=== PATIENT | female | born 1995 | race Caucasian/White ===

== ENCOUNTER 2020-08-12 23:05 | Observation (INO) ==
[2020-08-12] MEDS ORDERED: SODIUM CHLORIDE 0.9% 1000ML 1,000 ML IV ONE (23:20)
--- NOTE | 2020-08-12 23:27 | Emergency Department Note ---
Impression & Plan Drug overdose, Alcohol intoxication ED Provider Note Name: MURALI MILLRE Age: 25 Sex: F Arrives Via: Ambulance Informant: Patient, EMS, 302 petition ED Provider: Tom Cr MD Chief Complaint: overdose Impression: Drug Overdose Alcohol Intoxication Medical Decision Makin yr old female with history bipolar arrives after being witnessed taking entire bottle of Abilify. Patient intoxicated, admits she took the meds, is unable to say how many, and states that she was not trying to kill herself. 302 paperwork reports this was done in attempt to kill self. EKG, labs, vitals OK. Reviewed with Poison Control who advised medical observation for monitoring given delays absorption abilify. Patient stable and looks well. Agreeable to hospitalization for monitoring. Hospitalist in to evaluate further. Prior Medical Record and Triage/Nursing Notes reviewed by Me Additional history obtained from chart & EMS & 302 Differentials:Overdose, toxicologic, infection, hypoglycemia, electrolyte abnormalities, cardiac sources, intracerebral event, neurologic, trauma, as well as other pathologies. Vital Signs: reviewed and remarkable for no significant abnormalities Interventions: Saline lock, nss bolus Labs:Reviewed and remarkable for +etoh EKG:Per My Interpretation: Indication overdose: Sinus Seymour 56 bpm, qtc 387, qrs 90. No Ectopy. No Ischemia. No previous for comparison Cardiac/Tele Monitoring: Cardiac Monitoring: An Order was placed for continuous cardiac monitoring. The monitor shows a rate of 60 with a normal sinus rhythm. Consults:Poison control - medical observation required Dr Sourav Villaseñor Hospitalist Plan: Disposition:Hospitalization. Condition: Good History of Present Illness:25 yr old female arrives for evaluation following an overdose. Patient took an unknown amount of Abilify this evening. She admits she swallowed entire bottle but unclear how much was in the bottle. She had stopped using it for the last few months. She has a history of bipolar and is currently on no medications for this. She denies previous suicidal/homicidal ideation. Patient admits she is intoxicated after drinking "warm piss" all night. She is not sure why she took all the pills but she admits she was upset with her roommate. Her roommate reportedly called 911. She states she was not trying to harm herself. States feeling well with no medical complaints recently. No drug use. No recent trauma/injuries. ROS: See above HPI for pertinent positives & negatives. A total of 10 systems reviewed and were otherwise negative. Past Medical History:Migraines Past Surgical History:None Family History:State healthy Social History:Works at [employer], No drugs/tobacco, occasional etoh Home Medications:None Allergies:Sumatriptan Vitals:Blood Pressure: 99/56, Pulse 78, RR 18, T 36.7C, O2 96% on RA Physical Exam: GENERAL: Patient is intoxicated appearing and in mild distress. Crying and sad. EYES: No scleral icterus, unremarkable pupils. ENT: Mucous membranes moist, no nasal congestion. NECK: No masses appreciated, nomeningismus, trachea is midline. RESPIRATORY: No dyspnea. Clear to auscultation and equal bilaterally. No wheeze, no rhonchi. CARDIOVASCULAR: Regular rate and rhythm.No murmurs, rubs, gallops appreciated. GASTROINTESTINAL: Abdomen soft, non-tender, no peritonitis.Bowel sounds positive.No masses appreciated. BACK: No midline tenderness, no CVA tenderness EXTREMITIES: Normal motion all extremities, no cyanosis, no edema. NEUROLOGIC: Slurred intoxicated speech, no acute motor or sensory deficits, no focal weakness, cranial nerves grossly intact. SKIN: No rash, no jaundice, no diaphoresis. 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 Beliefs That Will Affect Care: None Current Living Situation: Alone Other Information That Helps Us Care for You: No Feels Safe at Home: Yes Safety Concerns: Feels Safe At This Time Assistive Devices: None Allergies Allergies Allergy/AdvReac Type Severity Reaction Status Date / Time Sulfa (Sulfonamide Allergy Intermediate Hives Verified 08/12/20 23:44 Antibiotics) sumatriptan Allergy Intermediate Hives Verified 08/12/20 23:44 Home Meds Home Medications Medication Instructions Recorded Confirmed albuterol sulfate 2 puff INHALATION Q4 PRN 08/12/20 08/12/20 fluticasone propionate 2 spray INTRANASAL DAILY PRN 08/12/20 08/12/20 Results & Data (ED) Vital Signs Vital Signs - 24 hr 08/12/20 23:12 08/12/20 23:14 08/12/20 23:15 Temperature 36.7 C Temperature Source Oral Pulse Rate 85 78 Pulse Rate from SpO2 Sensor 84 85 Respiratory Rate 18 Respiratory Effort / Characteristics Non-Labored Spontaneous Respiratory Depth Normal Blood Pressure 99/56 L 99/56 L Blood Pressure Mean 70 70 Pulse Oximetry 97 96 96 Oxygen Delivery Method Room Air Sepsis Recent Fever Within 48 Hours No Sepsis New/Unexplained Change in Mental Status No Sepsis Action Taken by Nursing No Action Required 08/12/20 23:30 08/12/20 23:31 08/13/20 00:00 Temperature Temperature Source Pulse Rate 60 62 56 L Pulse Rate from SpO2 Sensor 58 L 60 58 L Respiratory Rate 19 17 16 Respiratory Effort / Characteristics Respiratory Depth Blood Pressure 86/44 L 87/48 L Blood Pressure Mean 58 61 Pulse Oximetry 96 96 98 Oxygen Delivery Method Sepsis Recent Fever Within 48 Hours Sepsis New/Unexplained Change in Mental Status Sepsis Action Taken by Nursing 08/13/20 00:01 08/13/20 00:30 08/13/20 00:31 Temperature Temperature Source Pulse Rate 58 L Pulse Rate from SpO2 Sensor 57 L 72 66 Respiratory Rate 15 Respiratory Effort / Characteristics Respiratory Depth Blood Pressure 91/42 L Blood Pressure Mean 58 Pulse Oximetry 97 96 97 Oxygen Delivery Method Sepsis Recent Fever Within 48 Hours Sepsis New/Unexplained Change in Mental Status Sepsis Action Taken by Nursing Laboratory Data Result diagrams: 08/12/20 23:31 08/12/20 23:31 Lab Results 08/12/20 08/12/20 08/12/20 Range/Units 23:31 23:31 23:31 WBC 7.98 (4.8-10.8) K/uL RBC 4.41 (4.2-5.4) M/uL Hgb 13.4 (12.0-16.0) g/dL Hct 39.2 (37-47) % MCV 88.9 (80-100) fL MCH 30.4 (25-34) pg MCHC 34.2 (32-36) g/dL RDW Std Deviation 43.4 (36.4-46.3) fL RDW Coeff of David 13.1 (11.5-14.5) % Plt Count 298 (130-400) K/uL MPV 9.2 (7.4-10.4) fL Immature Gran % (Auto) 0.3 % Neut % (Auto) 76.5 % Lymph % (Auto) 18.2 % Martin % (Auto) 2.8 % Eos % (Auto) 1.9 % Baso % (Auto) 0.3 % Neut # (Auto) 6.12 (1.4-6.5) K/uL Lymph # (Auto) 1.45 (1.2-3.4) K/uL Martin # (Auto) 0.22 (0.11-0.59) K/uL Eos # (Auto) 0.15 (0-0.5) K/uL Baso # (Auto) 0.02 (0-0.2) K/uL Immature Gran # (Auto) 0.02 (0.00-0.02) K/uL Sodium 145 (136-145) mmol/L Potassium 3.3 L (3.5-5.1) mmol/L Chloride 114 H (98-107) mmol/L Carbon Dioxide 26 (21-32) mmol/L Anion Gap 5.0 (3-11) BUN 8 (7-18) mg/dl Creatinine 0.49 L (0.6-1.2) mg/dl Est Cr Clr Drug Dosing 139.7 ml/min Est GFR ( Amer) > 150.0 ml/min Est GFR (Non-Af Amer) 136.4 ml/min BUN/Creatinine Ratio 16.8 (10-20) Glucose 87 (70-99) mg/dl Calcium 8.7 (8.5-10.1) mg/dl Total Bilirubin 0.3 (0.2-1) mg/dl AST 11 L (15-37) U/L ALT 16 (12-78) U/L Alkaline Phosphatase 58 (45-117) U/L Total Protein 7.2 (6.4-8.2) gm/dl Albumin 3.4 (3.4-5.0) gm/dl Globulin 3.8 (2.5-4.0) gm/dl Albumin/Globulin Ratio 0.9 (0.9-2) TSH 0.517 (0.300-4.500) uIu/ml HCG, Qual (Negative) Salicylates 2.9 (2.8-20) mg/dl Acetaminophen < 2 L (10-30) ug/ml Ethyl Alcohol mg/dL (0-3) mg/dl COVID-19 Eval Order SARS-CoV-2 (PCR) (Negative) 08/12/20 08/12/20 08/12/20 Range/Units 23:31 23:31 23:40 WBC (4.8-10.8) K/uL RBC (4.2-5.4) M/uL Hgb (12.0-16.0) g/dL Hct (37-47) % MCV (80-100) fL MCH (25-34) pg MCHC (32-36) g/dL RDW Std Deviation (36.4-46.3) fL RDW Coeff of David (11.5-14.5) % Plt Count (130-400) K/uL MPV (7.4-10.4) fL Immature Gran % (Auto) % Neut % (Auto) % Lymph % (Auto) % Martin % (Auto) % Eos % (Auto) % Baso % (Auto) % Neut # (Auto) (1.4-6.5) K/uL Lymph # (Auto) (1.2-3.4) K/uL Martin # (Auto) (0.11-0.59) K/uL Eos # (Auto) (0-0.5) K/uL Baso # (Auto) (0-0.2) K/uL Immature Gran # (Auto) (0.00-0.02) K/uL Sodium (136-145) mmol/L Potassium (3.5-5.1) mmol/L Chloride (98-107) mmol/L Carbon Dioxide (21-32) mmol/L Anion Gap (3-11) BUN (7-18) mg/dl Creatinine (0.6-1.2) mg/dl Est Cr Clr Drug Dosing ml/min Est GFR ( Amer) ml/min Est GFR (Non-Af Amer) ml/min BUN/Creatinine Ratio (10-20) Glucose (70-99) mg/dl Calcium (8.5-10.1) mg/dl Total Bilirubin (0.2-1) mg/dl AST (15-37) U/L ALT (12-78) U/L Alkaline Phosphatase (45-117) U/L Total Protein (6.4-8.2) gm/dl Albumin (3.4-5.0) gm/dl Globulin (2.5-4.0) gm/dl Albumin/Globulin Ratio (0.9-2) TSH (0.300-4.500) uIu/ml HCG, Qual Negative (Negative) Salicylates (2.8-20) mg/dl Acetaminophen (10-30) ug/ml Ethyl Alcohol mg/dL 155.0 H (0-3) mg/dl COVID-19 Eval Order Covid19 at [facility] SARS-CoV-2 (PCR) (Negative) 08/12/20 Range/Units 23:40 WBC (4.8-10.8) K/uL RBC (4.2-5.4) M/uL Hgb (12.0-16.0) g/dL Hct (37-47) % MCV (80-100) fL MCH (25-34) pg MCHC (32-36) g/dL RDW Std Deviation (36.4-46.3) fL RDW Coeff of David (11.5-14.5) % Plt Count (130-400) K/uL MPV (7.4-10.4) fL Immature Gran % (Auto) % Neut % (Auto) % Lymph % (Auto) % Martin % (Auto) % Eos % (Auto) % Baso % (Auto) % Neut # (Auto) (1.4-6.5) K/uL Lymph # (Auto) (1.2-3.4) K/uL Martin # (Auto) (0.11-0.59) K/uL Eos # (Auto) (0-0.5) K/uL Baso # (Auto) (0-0.2) K/uL Immature Gran # (Auto) (0.00-0.02) K/uL Sodium (136-145) mmol/L Potassium (3.5-5.1) mmol/L Chloride (98-107) mmol/L Carbon Dioxide (21-32) mmol/L Anion Gap (3-11) BUN (7-18) mg/dl Creatinine (0.6-1.2) mg/dl Est Cr Clr Drug Dosing ml/min Est GFR ( Amer) ml/min Est GFR (Non-Af Amer) ml/min BUN/Creatinine Ratio (10-20) Glucose (70-99) mg/dl Calcium (8.5-10.1) mg/dl Total Bilirubin (0.2-1) mg/dl AST (15-37) U/L ALT (12-78) U/L Alkaline Phosphatase (45-117) U/L Total Protein (6.4-8.2) gm/dl Albumin (3.4-5.0) gm/dl Globulin (2.5-4.0) gm/dl Albumin/Globulin Ratio (0.9-2) TSH (0.300-4.500) uIu/ml HCG, Qual (Negative) Salicylates (2.8-20) mg/dl Acetaminophen (10-30) ug/ml Ethyl Alcohol mg/dL (0-3) mg/dl COVID-19 Eval Order SARS-CoV-2 (PCR) NEGATIVE (Negative) Administered Medications Sodium Chloride (Nss 1000ml) 1,000 mls @ 125 mls/hr IV .Q8H JOSEPH Stop: 09/12/20 01:47 Last Admin: 08/13/20 05:14 Dose: Not Given Documented by: [id number] Discontinued Medications Sodium Chloride (Nss 1000ml) 1,000 mls @ 999 mls/hr IV .Q1H1M ONE Stop: 08/13/20 00:20 Last Infusion: 08/13/20 01:09 Dose: 0 mls/hr Documented by: [id number] Admin: 08/13/20 00:00 Dose: 999 mls/hr Documented by: [id number] Discharge Plan Visit Data Chief Complaint: Overdose (Accidental) Stated Complaint: overdose ED Provider: Tom Cr Discharge Problem: Drug overdose, Alcohol intoxication Patient Disposition: Admitted As Inpatient Discharge Instructions Interventions: ED Discharge Assessment Last Done: 08/13/20 01:49 Discharge Problem: Drug overdose Qualifiers: Encounter type: initial encounter Injury intent: intentional self-harm Qualified Code(s): T50.902A - Poisoning by unspecified drugs, medicaments and biological substances, intentional self-harm, initial encounter Alcohol intoxication Qualifiers: Complication of substance-induced condition: uncomplicated Qualified Code(s): F10.920 - Alcohol use, unspecified with intoxication, uncomplicated
[2020-08-12 23:40] LABS: Basophils # (auto) 0.02 K/uL (0-0.2); Basophils % (auto) 0.3 %; Eosinophils # (auto) 0.15 K/uL (0-0.5); Eosinophils % (auto) 1.9 %; Hematocrit (blood only) 39.2 % (37-47); Hemoglobin 13.4 g/dL (12.0-16.0); Immature Granulocytes # (auto) 0.02 K/uL (0.00-0.02); Immature Granulocytes % (auto) 0.3 %; Lymphocytes # (auto) 1.45 K/uL (1.2-3.4); Lymphocytes % (auto) 18.2 %; Mean Corpuscular Hemoglobin 30.4 pg (25-34); Mean Corpuscular Hgb Conc 34.2 g/dL (32-36); Mean Corpuscular Volume 88.9 fL (80-100); Mean Platelet Volume 9.2 fL (7.4-10.4); Monocytes # (auto) 0.22 K/uL (0.11-0.59); Monocytes % (auto) 2.8 %; Neutrophils # (auto) 6.12 K/uL (1.4-6.5); Neutrophils % (auto) 76.5 %; Platelet Count 298 K/uL (130-400); RDW Coefficient of Variation 13.1 % (11.5-14.5); RDW Standard Deviation 43.4 fL (36.4-46.3); Red Blood Count 4.41 M/uL (4.2-5.4); White Blood Count 7.98 K/uL (4.8-10.8)
[2020-08-12 23:57] LABS: Alanine Aminotransferase 16 U/L (12-78); Albumin Level 3.4 gm/dl (3.4-5.0); Aspartate Aminotransferase 11 U/L (15-37); BUN Creatinine Ratio 16.8 (10-20); Blood Urea Nitrogen 8 mg/dl (7-18); Calcium 8.7 mg/dl (8.5-10.1); Carbon Dioxide 26 mmol/L (21-32); Chloride 114 mmol/L (98-107); Creatinine Clr Calc Pharmacy 139.7 ml/min; Est GFR (African American) > 150.0 ml/min; Est GFR (Non-African American) 136.4 ml/min; Glucose 87 mg/dl (70-99); Potassium 3.3 mmol/L (3.5-5.1); Sodium 145 mmol/L (136-145)
[2020-08-13 00:07] LABS: Pregnancy Test, Serum Negative (Negative)
[2020-08-13 00:08] LABS: Albumin Globulin Ratio 0.9 (0.9-2); Alkaline Phosphatase 58 U/L (45-117); Bilirubin,Total 0.3 mg/dl (0.2-1); Globulin 3.8 gm/dl (2.5-4.0); Thyroid Stimulating Hormone 0.517 uIu/ml (0.300-4.500); Total Protein 7.2 gm/dl (6.4-8.2)
[2020-08-13 00:12] LABS: Acetaminophen < 2 ug/ml (10-30)
[2020-08-13 00:13] LABS: Salicylate 2.9 mg/dl (2.8-20)
[2020-08-13] MEDS ORDERED: NITROGLYCERIN SL 0.4 MG/TAB TAB SL PRN (01:48)
[2020-08-13] MEDS ORDERED: FLUTICASONE PROPIONATE NA SPR 16 GM BTL PRN (01:48)
[2020-08-13] MEDS ORDERED: ALBUTEROL HFA 8 GM INHALER INH PRN (01:48)
[2020-08-13] MEDS: SODIUM CHLORIDE 0.9% 1000ML 1,000 ML IV SCH ×2 (05:14→08:50)
[2020-08-13 05:40] LABS: Appearance Urine Clear (Clear); Bilirubin Urine Negative (Negative); Blood Urine Negative (Negative); Color Urine Yellow; Glucose Urine UA Negative (Negative); Ketones Urine Negative (Negative); Leukocyte Esterase Urine Negative (Negative); Nitrite Urine Negative (Negative); Protein Urine Negative (Negative); Specific Gravity Urine 1.018 (1.000-1.030); Urobilinogen Urine Negative (Negative); pH Urine 8.5 (4.5-7.5)
[2020-08-13 05:43] LABS: Basophils # (auto) 0.02 K/uL (0-0.2); Basophils % (auto) 0.2 %; Hematocrit (blood only) 43.1 % (37-47); Hemoglobin 14.6 g/dL (12.0-16.0); Immature Granulocytes # (auto) 0.01 K/uL (0.00-0.02); Immature Granulocytes % (auto) 0.1 %; Lymphocytes # (auto) 0.83 K/uL (1.2-3.4); Lymphocytes % (auto) 10.4 %; Mean Corpuscular Hemoglobin 30.8 pg (25-34); Mean Corpuscular Hgb Conc 33.9 g/dL (32-36); Mean Corpuscular Volume 90.9 fL (80-100); Mean Platelet Volume 9.3 fL (7.4-10.4); Monocytes # (auto) 0.05 K/uL (0.11-0.59); Monocytes % (auto) 0.6 %; Neutrophils % (auto) 88.7 %; Platelet Count 356 K/uL (130-400); RDW Coefficient of Variation 13.2 % (11.5-14.5); RDW Standard Deviation 43.9 fL (36.4-46.3); Red Blood Count 4.74 M/uL (4.2-5.4); White Blood Count 8.01 K/uL (4.8-10.8)
[2020-08-13 05:58] LABS: Amphetamines+Metham, Urine Neg (Neg); Barbiturates, Urine Neg (Neg); Benzodiazepine, Urine Neg (Neg); Cocaine, Urine Neg (Neg); MDMA (Ecstacy), Urine Neg (Neg); Methadone, Urine Neg (Neg); Opiate, Urine Neg (Neg); Phencyclidine, Urine Neg (Neg)
[2020-08-13 06:21] LABS: BUN Creatinine Ratio 12.7 (10-20); Blood Urea Nitrogen 7 mg/dl (7-18); Carbon Dioxide 25 mmol/L (21-32); Chloride 114 mmol/L (98-107); Creatinine Clr Calc Pharmacy 146.2 ml/min; Est GFR (African American) > 150.0 ml/min; Est GFR (Non-African American) 132.1 ml/min; Glucose 118 mg/dl (70-99); Magnesium 2.1 mg/dl (1.8-2.4); Potassium 4.1 mmol/L (3.5-5.1); Sodium 144 mmol/L (136-145)
--- NOTE | 2020-08-13 07:25 | History and Physical Report ---
DATE OF ADMISSION: 08/13/2020. CHIEF COMPLAINT: drug overdose. HISTORY OF PRESENT ILLNESS: This is a 25-year-old female with past medical history significant for mild persistent asthma without complication, hidradenitis suppurativa, migraine, history of alcohol abuse, history of depression, tobacco use disorder, history of marijuana use, history of suicidal attempt in the past, who comes because of overdose with Abilify. The patient is currently drowsy and also shows her alcohol level was 155. We do not know the amount of Abilify she took. As per the ER, she was not taking it for a few months and she has a history of bipolar and currently not on any medications. She states it was her off yesterday and she drank alcohol. She says she drinks only when she is not working on the weekends, she does not drink daily. Her roommate reportedly called 911. She states she has no thoughts to hurt herself. She says she only took a few pills and says she just wants to go home, but she is mostly drowsy. Denies any headache, denies any blurred visions or earache and runny nose. No sore throat, no cough, no fever, no chest pain, no shortness of breath, no nausea, no abnormal bowel or bladder movements. Currently somewhat drowsy, but hemodynamics are stable. ALLERGIES: TO SULFA ANTIBIOTICS AND SUMATRIPTAN PAST MEDICAL HISTORY: As mentioned above. PAST SURGICAL HISTORY: Loop electrosurgery. MEDICATIONS: Albuterol 4 puffs inhalation q. 4 hours p.r.n., Flonase intranasally daily p.r.n. FAMILY HISTORY: Significant for father has alcoholism, obesity; brother has asthma. SOCIAL HISTORY: Single, smokes 1 pack a day for last 8 years as per EPIC. Alcohol, about a half gallon of liquor on weekends. Drug use, as per the EPIC not currently, but used to smoke marijuana in the past. REVIEW OF SYSTEMS: As per HPI. PHYSICAL EXAMINATION: GENERAL: The patient is of moderate build, not in acute distress. VITAL SIGNS: Temperature 37, pulse 79, respiratory rate 18, blood pressure 100/64, oxygen 96% on room air. HEENT: Pupils equal, round and reactive to light, oral mucosa moist. NECK: No JVD, no neck masses seen. CARDIOVASCULAR: S1 and S2 heard. Regular rate and rhythm. No murmur, no gallop. RESPIRATORY SYSTEM: Normal AP diameter. No accessory muscle use. No wheezing, no crackles. ABDOMEN: Soft, bowel sounds present, nontender, no distention. CENTRAL NERVOUS SYSTEM: Cranial nerves II through XII are grossly intact, nonfocal. EXTREMITIES: No edema, no erythema. LABORATORY DATA: WBC 7.9, hemoglobin 13.4, hematocrit 39.2, platelets 298. Sodium 145, potassium 3.3, chloride 114, CO2 of 26, BUN 8, creatinine 0.4, serum glucose 187, calcium 8.7, total bilirubin 0.3, AST 11, ALT 16, alkaline phosphatase 58, total protein 7.2. TSH 0.5. HCG qualitative negative. Salicylates are 2.9, acetaminophen less than 2, ethyl alcohol 155. SARS-CoV-2 PCR negative. EKG: Sinus bradycardia with marked sinus arrhythmia at a rate of 56.No acute st changes seen.No Qt prolongation. ASSESSMENT AND PLAN: This is a 25-year-old female who presents with drug overdose. 1. Drug overdose: Seems to be intentional overdose with Abilify. Does not know how much she took. Possible suicidal ideation. ER spoke with Poison Control and advised to monitor for 8 to 10 hours .Still drowsy. IV fluids, one-on-one, suicidal checks, and monitor in the tele floor. Follow the repeat labs. Repeat EKG in the a.m. Consult psychiatry in the a.m. 2. Asthma: Continue her albuterol p.r.n. 3. History of bipolar, major depression: Currently not on any medications. 4. Alcoholism. Says only drinks on weekends. Says not daily drinker. Will monitor for withdrawals. 5. Deep venous thrombosis prophylaxis: Sequential compression devices. DISPOSITION: Monitor in the tele floor and await psychiatry input. Level 1 full code. Job ID: [id number] MTDD
[2020-08-13] MEDS ORDERED: THIAMINE HCL 100 MG TAB PO SCH (09:00)
[2020-08-13] MEDS ORDERED: FOLIC ACID 1 MG TAB PO SCH (09:00)
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
--- NOTE | 2020-08-13 10:12 | Hospitalist Progress Note ---
Date of Service August 13, 2020 Assessment & Plan (1) Alcohol intoxication: Drug overdose Alcohol intoxication Toxicology Screen: Marijuana Denies suicidal, homicidal thoughts Appreciate psychiatry input Counseled to quit alcohol use Monitor for withdrawal Hypokalemia Replace electrolytes as needed Normal magnesium levels Asthma No signs of exacerbation Continue home inhalers as needed History of bipolar disorder, depression Currently not on any medications Needs follow-up with psychiatry upon discharge DVT Px: SCDs Disposition Patient refused to obtain follow-up appointment with PCP in 1 week as recommended She prefers to visit as needed Admission and Anticipated Discharge Date Admission Date: August 13, 2020 Subjective Patient is seen and examined at bedside Eager to get discharged Denies suicidal, homicidal thoughts Also denies chest pain, shortness of breath, dizziness, nausea, abdominal pain No signs of withdrawal Appreciate psychiatry input Review of Systems Review of Systems: All systems reviewed & are unremarkable except as noted in HPI & below Physical Exam Physical Exam: Physical Exam: Vitals signs as noted above General Appearance:Moderately built and nourished, no apparent distress Head: normocephalic, Atraumatic Eyes: normal inspection, EOMI Neck: supple, Trachea midline Respiratory/Chest: Normal breath sounds, CTA Cardiovascular: S1, S2, No murmur Abdomen/GI:Soft, Non tender, Bowel sounds present Extremities/Musculoskeletal:normal inspection, no edema Neurologic/Psych:AAOX3, grossly no focal neurological deficits Skin: normal color, warm Results & Data Results & Data ([facility]) Vital Signs (Past 12 Hours) Vital Signs Temp Pulse Pulse Resp BP BP Pulse Ox 08/13/20 07:15 64 08/13/20 07:04 36.8 C 61 20 94/56 L 96 08/13/20 06:23 36.9 C 60 18 102/65 96 08/13/20 02:15 37.0 C 81 79 18 100/64 96 08/13/20 01:31 95 08/13/20 01:30 93/46 L 95 08/13/20 01:01 96 08/13/20 01:00 92/50 L 96 08/13/20 00:31 97 08/13/20 00:30 91/42 L 96 08/13/20 00:01 58 L 15 97 08/13/20 00:00 56 L 16 87/48 L 98 08/12/20 23:31 62 17 96 08/12/20 23:30 60 19 86/44 L 96 08/12/20 23:15 96 08/12/20 23:14 36.7 C 78 18 99/56 L 96 08/12/20 23:12 85 99/56 L 97 Laboratory Results Short CBC 08/12/20 08/13/20 Range/Units 23:31 05:21 WBC 7.98 8.01 (4.8-10.8) K/uL Hgb 13.4 14.6 (12.0-16.0) g/dL Hct 39.2 43.1 (37-47) % Plt Count 298 356 (130-400) K/uL BMP 08/12/20 08/13/20 23:31 05:21 Sodium 145 144 Potassium 3.3 L 4.1 D Chloride 114 H 114 H Carbon Dioxide 26 25 BUN 8 7 Creatinine 0.49 L 0.54 L Glucose 87 118 H Calcium 8.7 9.0 Liver Function 08/12/20 Range/Units 23:31 Total Bilirubin 0.3 (0.2-1) mg/dl AST 11 L (15-37) U/L ALT 16 (12-78) U/L Alkaline Phosphatase 58 (45-117) U/L Albumin 3.4 (3.4-5.0) gm/dl Urine 08/13/20 Range/Units 05:30 Urine Color Yellow Urine Appearance Clear (Clear) Urine pH 8.5 H (4.5-7.5) Ur Specific [place] 1.018 (1.000-1.030) Urine Protein Negative (Negative) Urine Glucose (UA) Negative (Negative) (1) Alcohol intoxication Complication of substance-induced condition: uncomplicated Qualified Code(s): F10.920 - Alcohol use, unspecified with intoxication, uncomplicated
--- NOTE | 2020-08-13 10:14 | Discharge Summary ---
Date of Service August 13, 2020 Admission HPI Per Admitting Provider CHIEF COMPLAINT: drug overdose. HISTORY OF PRESENT ILLNESS: This is a 25-year-old female with past medical history significant for mild persistent asthma without complication, hidradenitis suppurativa, migraine, history of alcohol abuse, history of depression, tobacco use disorder, history of marijuana use, history of suicidal attempt in the past, who comes because of overdose with Abilify. The patient is currently drowsy and also shows her alcohol level was 155. We do not know the amount of Abilify she took. As per the ER, she was not taking it for a few months and she has a history of bipolar and currently not on any medications. She states it was her off yesterday and she drank alcohol. She says she drinks only when she is not working on the weekends, she does not drink daily. Her roommate reportedly called 911. She states she has no thoughts to hurt herself. She says she only took a few pills and says she just wants to go home, but she is mostly drowsy. Denies any headache, denies any blurred visions or earache and runny nose. No sore throat, no cough, no fever, no chest pain, no shortness of breath, no nausea, no abnormal bowel or bladder movements. Currently somewhat drowsy, but hemodynamics are stable. Admission Exam Per Admitting Provider PHYSICAL EXAMINATION: GENERAL: The patient is of moderate build, not in acute distress. VITAL SIGNS: Temperature 37, pulse 79, respiratory rate 18, blood pressure 100/64, oxygen 96% on room air. HEENT: Pupils equal, round and reactive to light, oral mucosa moist. NECK: No JVD, no neck masses seen. CARDIOVASCULAR: S1 and S2 heard. Regular rate and rhythm. No murmur, no gallop. RESPIRATORY SYSTEM: Normal AP diameter. No accessory muscle use. No wheezing, no crackles. ABDOMEN: Soft, bowel sounds present, nontender, no distention. CENTRAL NERVOUS SYSTEM: Cranial nerves II through XII are grossly intact, nonfocal. EXTREMITIES: No edema, no erythema. Principal Diagnosis Drug overdose Alcohol intoxication Discharge Data Allergies Allergy/AdvReac Type Severity Reaction Status Date / Time Sulfa (Sulfonamide Allergy Intermediate Hives Verified 08/12/20 23:44 Antibiotics) sumatriptan Allergy Intermediate Hives Verified 08/12/20 23:44 Consultations 08/13/20 00:02 ED Decision to Admit Stat 08/13/20 08:00 Consult Psychiatry Routine Procedures Performed CXR:No acute process. Hospital Course (1) Alcohol intoxication: Drug overdose Alcohol intoxication Toxicology Screen: Marijuana Denies suicidal, homicidal thoughts Appreciate psychiatry input Counseled to quit alcohol use Monitor for withdrawal Hypokalemia Replace electrolytes as needed Normal magnesium levels Asthma No signs of exacerbation Continue home inhalers as needed History of bipolar disorder, depression Currently not on any medications Needs follow-up with psychiatry upon discharge DVT Px: SCDs Disposition Patient refused to obtain follow-up appointment with PCP in 1 week as recommended She prefers to visit as needed Total Time Total Time Spent Total Time Spent (In Minutes): 39 minutes Total Time Includes: Examination of the Patient, Discharge Planning, Medication Reconciliation, Communication With Other Providers and Other Discharge Plan Discharge Items Patient Disposition: Home - Self-Care Reason For Visit: OVERDOSE Discharge Diagnosis: Drug overdose Alcohol intoxication Activity: Per Instructions section Exercise/Sports: Gradually increase as tolerated Non-emergency contact: Primary Care Provider and Psychiatrist Call non-emergency contact if: you have any medication questions, your symptoms worsen, your pain is not controlled, your pain is concerning for you and you have a fever Follow-up/Referrals: Raghavendra Dhaliwal MD [Primary Care Provider] - Diet: Regular Addtl Attending Provider Instructions: Follow up with your PCP in 1 week Seek immediate medical attention if your symptoms reoccur or worsen Please take all medications as instructed on discharge list below. Please call if you have any questions or problems. You can reach a [facility] hospitalist on duty at [facility] 24 hours a day by calling [phone] Pending Studies at Discharge: No Stand-Alone Forms: My [facility], Smoking Cessation Medications and DC Order Prescriptions: Continued albuterol sulfate 90 mcg/actuation HFA aerosol inhaler 2 puff INHALATION Q4 PRN (Reason: Wheezing) RF: 0 fluticasone propionate 50 mcg/actuation spray,suspension 2 spray INTRANASAL DAILY PRN (Reason: allergies or congestion) RF: 0 Discharge Orders: Discharge Order (Routine); Ordered 08/13/20 Ordered By: Himanshu Edward Admission Data Admit Date/Time: 08/13/20 00:53 Attending Provider: Himanshu Edward Admit Provider: Lazaro Benjamin Primary Care Provider: Raghavendra Dhaliwal Other Providers: Lazaro Benjamin ; Karo Cornejo ; Dr Dario ; Sary Alvarado ; Jose Solis Other Interventions: Discharge Summary Assessment (RN) Last Done: 08/13/20 10:24
--- NOTE | 2020-08-14 11:35 | Electrocardiogram Report ---
Test Reason : Blood Pressure : / mmHG Vent. Rate : 056 BPM Atrial Rate : 056 BPM P-R Int : 148 ms QRS Dur : 090 ms QT Int : 402 ms P-R-T Axes : 065 061 060 degrees QTc Int : 387 ms Sinus bradycardia with marked sinus arrhythmia Otherwise normal ECG No previous ECGs available Confirmed by Codey Miranda ([id number]) on 08/14/2020 11:35:01 AM Referred By: REFERRED SELF Confirmed By:Codey Miranda
[2020-08-14 22:02] LABS: Marijuana Quant, GCMS Urine 900 ng/mL (<5)
== END 2020-08-13 10:34 | disposition home or self-care (01) | DRG 918 ==
LOC: ED 23:05 → INTOOBSV 08-13 00:53 → 2E 08-13 00:53